=== PATIENT | male | born 1950 | race Caucasian/White ===

== ENCOUNTER 2022-12-30 09:19 | Outpatient (REF) | payer OTHER, MEDICARE, SELFPAY ==
--- NOTE | ~2022-12-30 | XR_ITS ---
EXAMINATION: XR CERVICAL SPINE CLINICAL INFORMATION: Fall, trauma, pain COMPARISON: Facial bones 12/30/2022 TECHNIQUE: 3 views of the cervical spine were obtained. FINDINGS: There is no cervical vertebral compression, spondylolisthesis, or prevertebral soft tissue swelling. Cervical lordosis within normal. The odontoid appears intact. There are multilevel degenerative disc changes C3-T1 with disc narrowing and variable endplate sclerosis and vertebral spurring. Multilevel facet degeneration also present. There is some nonspecific demineralization posterior superior aspect C1 posterior spinous process. No periostitis. Otherwise, no bony destructive process. XR/XR cervical spine 3V IMPRESSION: 1. No vertebral compression, spondylolisthesis, or prevertebral soft tissue swelling. 2. Multilevel degenerative disc and degenerative facet changes. 3. Nonspecific demineralization posterior superior aspect C1 posterior spinous process.
--- NOTE | ~2022-12-30 | XR_ITS ---
EXAMINATION: XR FACIAL BONES CLINICAL INFORMATION: Fall COMPARISON: None TECHNIQUE: 3 views of the facial bones were obtained. FINDINGS: There are no acute fractures or dislocations. There may be old trauma to the inferior nasal bone. There is question of a lucency measuring 1 cm seen projecting superior to the left frontal sinus. This is appreciated on the polanco view only.. There are degenerative changes of the spine. Soft tissues are normal. XR/XR facial bones min 3V IMPRESSION: No acute findings.
== END 2022-12-30 09:20 | disposition home or self-care (01) ==
LOC: HO.HMGCX 09:19
PROVIDERS: Visit Provider Nurse Practitioner Family
DX: T20.00XA Burn of unspecified degree of head, face, and neck, unspecified site, initial encounter (principal); M54.2 Cervicalgia; W19.XXXD Unspecified fall, subsequent encounter
CPT/HCPCS: 70150; 72040

== ENCOUNTER 2025-09-08 08:28 | Outpatient (AMB) | payer OTHER, SELFPAY ==
--- NOTE | 2025-09-08 08:31 | A.OFFVIS_ITS ---
Vital Signs 09/08/25 08:34 Height 5 ft 8 in Weight 154 lb 8 oz BMI 23.5 BP 148/84 H Blood Pressure Location Rt brachial Position Sitting Pulse 77 Pulse Source Pulse Oximeter Pulse Oximetry (%) 99 Oxygen Delivery Method Room Air Intake Visit Reasons: 05/11LVM+Let ENP - Tremors, Dizziness, Falls Intake Note: Tremor, Dizziness and Falls Deaf/Hard Of Hearing Specialist Required: No Accompanied by: Sister in law Allergies No Known Allergies Allergy (Verified 09/08/25 08:31) Medication List - Last Reconciled 09/08/25 by Hien Almonte MD ascorbic acid (vitamin C) 100 mg PO DAILY atorvastatin 20 mg PO DAILY carbidopa-levodopa 25-100 mg 1 tab PO BID cholecalciferol (vitamin D3) 50 mcg PO DAILY diclofenac sodium 1% 2 grams topical QID HPI Comments Details: 75y/o Right Handed male comes here for evaluation of tremors, fatigue, dizziness, poor balance. He started noticing tremors in his left hand about 1 year ago . the tremors are intermittent and at rest. No drooling No change in voice. He denies any difficulty with his hand writing No trouble with utensils, No difficulty with shower but is slow in dressing .No problems with turning in bed He has sleep issues.He is not sure if he snores, nocturia 3 times , has excessive daytime fatigue. His sleep worse since radiation for prostrate cancer 1 year ago. 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 No h/o head injury He had 1 fall- last week- he had a few drinks and became dizzy He drinks a bottle of wine sometimes and 3 glasses of wine.He feels lightheaded when he has a few drinks He lives with his partner . 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 Constipation Actinic keratoses Need for hepatitis C screening test Vitamin D deficiency Cervicalgia Other fatigue Recurrent falls Tremors of nervous system Dizziness Tubular adenoma of colon Prostate cancer Normocytic anemia Pre-diabetes Hyperlipidemia, mixed Surgical History S/P colonoscopic polypectomy Physical Exam Vital Signs: Last Vital Signs Pulse 77 09/08/25 08:34 BP 148/84 H 09/08/25 08:34 Pulse Ox 99 09/08/25 08:34 Oxygen Delivery Method Room Air 09/08/25 08:34 BMI result Body Mass Index 23.5 Const General: cooperative, healthy appearing and comfortable Nutritional Appearance: average body habitus Orientation/consciousness: patient oriented x3 Eyes Pupils: Equal, round and reactive pupils present Neuro Other: antecollis Restricted lateral movement Decreased facial expression and blink EOM- severely decreased upgaze and down gaze and saccadic horizontal movements. Left UE high amplitude rest tremors FFM and foot taps decreased vernon L>R Mild cog wheel rigidity L>R Gait- no arm swing on left , stooped slow General: patient oriented x3, moves all extremities and no focal motor deficits Cranial nerves: Yes Facial sensation intact/muscles of mastication intact, Yes Equal, round and reactive pupils present, Yes Bilaterally intact EOM present, Yes Nystagmus not present, Yes Normal facial strength present, Yes Midline tongue present and Yes Ability to bilaterally elevate shoulders present Cognition (Neuro): normal cognition Motor exam (neuro): 5/5 motor strength present throughout and Normal motor muscle tone present throughout Deep tendon reflexes (DTR's): Right triceps reflex intensity grade: 1+, Left triceps reflex intensity grade: 1+, Rt Biceps (C5, C6): 1+, Left biceps reflex intensity grade: 1+, Right brachioradialis reflex intensity grade: 1+, Left brachioradialis reflex intensity grade: 1+, Right patellar reflex intensity grade: 2+ and Left patellar reflex intensity grade: 2+ Coordination: [id number] test normal Assessment & Plan Assessment & Plan (1) Parkinsons disease: Comment: ? PSP Code(s): G20 - Parkinson's disease Category: Medical (2) Hypersomnia: Code(s): G47.10 - Hypersomnia, unspecified Category: Medical (3) Snoring: Code(s): R06.83 - Snoring Category: Medical Plan MRI brain from [place] for review I will trial him on carbidopa/levodopa 25/100 bid - interaction with protien discussed PT for gait and balance Home sleep test to r/o sleep apnea STOP ALCOHOL Orders: Orders PWR Program Eval and Treat Today G20 - Parkinson's disease Medications: New carbidopa-levodopa 25-100 mg 1 tab PO BID 60 tabs 6RF Coding Level of Care Code New Pt Level 4 (06340) Complex EM visit Add On G2211 Diagnoses Parkinsons disease G20 Hypersomnia G47.10 Snoring R06.83
[2025-09-08 08:34] VITALS: BP 148/84; PULSE 77; O2SAT 99; BMI 23.5
--- OUTSIDE RECORDS SUMMARY | 2025-09-08 08:51 | XMS_ITS | Encounter Summary ---
Author Organization [facility] Address [address] [place] [address] Care Team Providers Care Installation Drafter Name Role Phone Andre Rush MD Primary Care Pr ovider Encounter Details Date Type Department Care Team (Late Contact Info) Description 10/25/2024 Lab Requisition [facility] - Main Lab [address] [facility] [place] [phone] Clara Miramontes, PA [address] [facility] [address] [place] [address] Malignant [facility] ([facility] V24, CMS/HCC V28) Social History Tobacco Use Types Packs/Day Years Used Date Smoking Tobacco: Never Smokeless Tobacco: Never Alcohol Use Standard Drinks/Week Comments Yes 3 (1 standard drink = 0.6 oz pur e alcohol) Sex and Gender Information Value Date Recorded Sex Assigned at Not on file Legal Sex Male 9:06 PM EST Gender Identity Not on file Sexual Orientation Not on file documented as of this encounter Plan of Treatment Upcoming Encounters Date Type Department Care Team (Late Contact Info) Description 09/09/2025 10:00 AM EDT Office Visit Neurosurgery [facility] [address] [facility] [address] [place] [phone] Lesli Barreto MD [address] [place] [address] 09/13/2025 9:30 AM EDT Office Visit Adult Medicine [facility] [address] [place], [place] [phone] Cecilia Staton PA [address] [place] [address] 11/14/2025 9:00 AM EST Appointment [facility] Endoscopy [address] [place] [phone] Jeremias Cantrell DO [address] [address] documented as of this encounter Procedures Procedure Name Priority Date/Time Associated Diagnosis Comments PROSTATE SPECIFIC ANTIGEN DIAGNOSTIC Routine 10/25/2024 9:12 AM EST Malignant neoplasm of prostate (CMS/HCC) documented in this encounter Results * Prostate specific antigen diagnostic (10/25/2024 9:12 AM EST) PSA 0.07 0.00 - 4.00 ng/mL LAB CHEMISTRY METHOD 10/25/2024 12:53 PM EST [facility] Blood Venous blood specimen / Unknown 10/25/2024 9:12 AM EST 10/25/2024 12:08 PM EST Narrative [facility] - 10/25/2024 12:53 PM EST The Siemens Advia Centaur Chemiluminescent Immunoassay is used. Results obtained with different assay methods or kits cannot be used interchangeably. Results cannot be interpreted as absolute evidence of the presence or absence of malignant disease. us Clara TOBAR LAB BLOOD ORDERABLES Final Resul t [facility] [address] [place] [address], [place] [phone] documented in this encounter Visit Diagnoses Diagnosis Malignant neoplasm of prostate (CMS/HCC V24, CMS/HCC V28) Malignant neoplasm of prostate documented in this encounter Care Teams Installation Drafter Relationship Specialty Start Date End Date Ogundipe, Oyinkansola Oyenike, MD [address] [place] [phone] PCP - General Internal Medicine 11/08/24 documented as of this encounter
--- OUTSIDE RECORDS SUMMARY | 2025-09-08 08:51 | XMS_ITS | Clinical Summary ---
Author Organization [facility] Address [address] [place] [address] Phone Care Team Providers Care Hand Stoner Name Role Phone Andre Rush MD Primary Care Pr ovider Allergies No known active allergies Medications coenzyme Q-10 (Co Q-10) 100 mg capsule Take 1 capsule (100 mg total) by mouth 1 (one) time each day. Active Vitamin C tablet Take 1 tablet (100 mg total) by mouth 1 (one) time each day. Active cholecalciferol (VITAMIN D-3) 50 mcg (2,000 unit) tabletIndications: Vitamin D insufficiency Take 1 tablet (2,000 Units total) by mouth 1 (one) time each day. 90 tablet 3 5 05/16/20 26 Active atorvastatin (LIPITOR) 20 mg tablet TAKE 1 TABLET BY MOUTH DAILY 90 tablet 1 5 Active diclofenac (VOLTAREN) 1 % topical gel Apply 2 g topically 2 (two) times a day. 100 g 1 5 Active Active Problems Problem Noted Date Diagnosed Date Dizziness 06/24/2025 Assessment & Plan (06/24/2025 8:45 AM EDT): As above. His dizziness could also be related to his severe DJD of the neck/cervical stenosis. He will follow-up with neurology at [facility] in August Vitamin D insufficiency 05/16/2025 Assessment & Plan (06/24/2025 8:45 AM EDT): Continue vitamin D daily Hyperlipidemia, mixed 05/09/2025 Assessment & Plan (06/24/2025 8:45 AM EDT): Well-controlled. Continue atorvastatin 20 mg Assessment & Plan (05/09/2025 2:38 PM EDT): Continue atorvastatin 20 mg. Will update fasting labs Orders: Comprehensive metabolic panel; Future Lipid panel with reflex to direct LDL; Future Prediabetes 05/09/2025 Assessment & Plan (06/24/2025 8:45 AM EDT): Stable. continue lifestyle management. Assessment & Plan (05/09/2025 2:38 PM EDT): Lifestyle counseling provided. Will update A1c Orders: Hemoglobin A1c; Future Tubular adenoma of colon 05/09/2025 Assessment & Plan (06/24/2025 8:45 AM EDT): Has colonoscopy scheduled for Dec Orders: Ambulatory referral to Gastroenterology; Future Assessment & Plan (05/09/2025 2:38 PM EDT): Due for colonoscopy in October and is referred to GI Orders: Ambulatory referral to Gastroenterology; Future Vitamin D 25 hydroxy; Future Cervicalgia 05/09/2025 Assessment & Plan (05/09/2025 2:38 PM EDT): Will trial Flexeril nightly. Counseled on possible side effects of the medication. X-ray of the C-spine is ordered Orders: cyclobenzaprine (FLEXERIL) 5 mg tablet; Take 1 tablet (5 mg total) by mouth at bedtime as needed for muscle spasms. Tremors of nervous system 05/09/2025 Assessment & Plan (06/24/2025 8:45 AM EDT): He will follow-up with neurology at [facility] in August Assessment & Plan (05/09/2025 2:38 PM EDT): Referred to neurology. MRI of the brain ordered Orders: MR Brain wo and w Contrast; Future Ambulatory referral to Neurology; Future Osteoarthritis of cervical spine with myelopathy 05/09/2025 Assessment & Plan (06/24/2025 8:45 AM EDT): He will start physical therapy next week and follow-up with neurosurgery thereafter. Neuroforaminal stenosis of cervical spine 2024 Assessment & Plan (06/24/2025 8:45 AM EDT): He will start physical therapy next week and follow-up with neurosurgery thereafter. Prostate cancer (CMS/HCC V24, CMS/HCC V28) 10/26 Assessment & Plan (06/24/2025 8:45 AM EDT): He will continue urology follow-up. See HPI Assessment & Plan (05/09/2025 2:38 PM EDT): He will continue urology follow-up with Dr. Andrews. Received his last Eligard injection last week per patient/family Orders: Vitamin D 25 hydroxy; Future Constipation 05/30/2023 Melanocytic nevus 05/30/2023 Assessment & Plan (06/24/2025 8:45 AM EDT): Referred to dermatology for complete skin exam Orders: Ambulatory referral to Dermatology; Future Solar lentigo 05/30/2023 Actinic keratoses 05/30/2023 Assessment & Plan (06/24/2025 8:45 AM EDT): Referred to dermatology Orders: Ambulatory referral to Dermatology; Future Resolved Problems Problem Noted Date Diagnosed Date Resolved Date Normocytic anemia 05/09/2025 06/24/2025 Assessment & Plan (05/09/2025 2:38 PM EDT): Likely related to his history of prostate cancer and colon polyps which were removed. Will update labs given his continued fatigue. Orders: CBC and differential; Future Ferritin; Future Iron and TIBC; Future Elevated PSA 05/30/2023 05/09/2025 Encounters Date Type Department Care Team Description 08/18/[address] [phone] Andre Rush MD 08/15/[address] [phone] Andre Rush MD 08/09/2025 8:30 AM EDT Office Visit [address] [phone] Cecilia Staton PA Hyperlipidemia, mixed (Primary Dx); Prediabetes; History of prostate cancer; Vitamin D insufficiency; Neuroforaminal stenosis of cervical spine; History of essential hypertension; Tremors of nervous system; Referral of patient 06/24/2025 8:00 AM EDT Office Visit [address] [phone] Andre Rush MD Annual physical exam (Primary Dx); Prediabetes; Prostate cancer (CMS/HCC V24, CMS/HCC V28); Hyperlipidemia, mixed; Tubular adenoma of colon; Alcohol use disorder in remission; Dizziness; Melanocytic nevus, unspecified location; Actinic keratoses; Neuroforaminal stenosis of cervical spine; Osteoarthritis of cervical spine with myelopathy; Tremors of nervous system; Vitamin D insufficiency 06/13/2025 Telephone Neurosurgery [facility] [address] [place] [address] Christina Cruz PA 06/10/2025 8:15 AM EDT - 06/10/2025 11:59 PM EDT Hospital Encounter Radiology Department - [address] [phone] Cervical spondylosis Discharge Disposition: Home or Self Care from Last 3 Months Immunizations Immunization Administration Dates Next Due Pneumococcal conjugate 20 va lent (Prevnar 20, PCV 20) 2mo and older 05/30/2023 Surgical History Surgery Date Site/Laterality Comments CARPAL TUNNEL RELEASE 2012 PROCEDURE: HISTORICAL CARPAL TUNNEL REL COLONOSCOPY Medical History Medical History Date Comments Hyperlipidemia Prostate CA (CMS/HCC V24, CMS/HCC V28) Solar lentigo Actinic keratoses Melanocytic nevus Elevated PSA 05/30/2023 High cholesterol Normocytic anemia 05/09/2025 Family History Medical History Relation Name Comments Breast cancer Neg Hx Colon cancer Neg Hx Prostate cancer Neg Hx Relation Name Status Comments Father Mother Social History Tobacco Use Types Packs/Day Years Used Date Smoking Tobacco: Never Smokeless Tobacco: Never Tobacco Cessation:Counseling Given: Not Answered Alcohol Use Standard Drinks/Week Comments Yes 4 (1 standard drink = 0.6 oz pur e alcohol) Housing Instability Answer Date Recorde d Are you worried that in the next 2 months you may not have stable housing? No 06/24/2025 Food Access & Nutrition Answer Date Rec orded Do you have access to a vari ety of food including fruits and vegetables? Yes 06/24/2025 Access to Healthcare Answer Date Record ed Within the last 3 months, delilah giraldo many times did you visit the emergency department for your medical care? 0 06/24/2025 Health Literacy Answer Date Recorded How often do you need to hav e someone help you when you read instructions, pamphlets, or other written material from your doctor or pharmacy? Never 06/24/2025 Caregiver: How often do you need to have someone help you when you read instructions, pamphlets, or other written material from your doctor or pharmacy? Not on file 06/24/2025 Financial Risk Answer Date Recorded How hard is it for you to pa y for the very basics like food, housing, medical care, and air conditioning / heating? Not very hard 06/24/2025 Transportation Answer Date Recorded Has the lack of transportati on kept you from meetings, work, or from getting things needed for daily living? No Has the lack of transportati on kept you from medical appointments or from getting medications? No 06/24/2025 Social Isolation Answer Date Recorded How often do you feel lonely or isolated from th ose around you? Never 06/24/2025 Food Risk Answer Date Recorded Within the past 12 months we worried whether our food would run out before we got money to buy more. Never true 06/24/2025 Within the past 12 months th e food we bought just didn't last and we didn't have money to get more. Never true 06/24/2025 Dependent Care Answer Date Recorded Do you need help finding or paying for care for your loved ones. For example, early childhood worker or elderly care for an older adult? No 06/24/2025 Education Answer Date Recorded Do you think completing more education or training, like finishing a GED, going to college, or learning a trade, would be helpful for you? No 06/24/2025 Employment and Income Answer Date Recor ded During the last four weeks, have you been actively looking for work? No 06/24/2025 Living Situation Answer Date Recorded What is your living situation? Unrecognized valu e 06/24/2025 Interpersonal Safety Answer Date Record ed Physical Abuse Unrecognized value 11/08/2024 Verbal Abuse Unrecognized value 11/08/2024 Sex and Gender Information Value Date Recorded Sex Assigned at Not on file Legal Sex Male 9:06 PM EST Gender Identity Not on file Sexual Orientation Not on file Obstetrics History Last Filed Vital Signs Vital Sign Reading Time Taken Comments Blood Pressure 144/78 08/09/2025 8:29 AM EDT Pulse 76 08/09/2025 8:20 AM EDT Temperature 35.9 C (96.6 F) 08/09/2025 8:20 AM EDT Respiratory Rate 16 08/09/2025 8:20 AM EDT Oxygen Saturation 96% 08/09/2025 8:20 AM EDT Inhaled Oxygen Concentration - - Weight 70 kg (154 lb 4.8 oz) 08/09/2025 8:20 AM EDT Height 172.7 cm (5' 8 ) 08/09/2025 8:20 AM EDT Body Mass Index 23.46 08/09/2025 8:20 AM EDT Plan of Treatment Upcoming Encounters Date Type Department Care Team (Late st Contact Info) Description 09/09/2025 10:00 AM EDT Office Visit Neurosurgery [facility] [address] [facility] [address] [place] [phone] Lesli Barreto MD [address] [place] [address] 09/13/2025 9:30 AM EDT Office Visit Adult Medicine [facility] [address] [place] [address] Cecilia Staton PA [address] [place] [address] 11/14/2025 9:00 AM EST Appointment [facility] [address] [place] [phone] Klaudia Cantrell, [address] [address] Health Maintenance Due Date Last Done Comments Hepatitis A Vaccines (1 of 2 - Risk 2-dose series) 1969 Zoster Vaccines (1 of 2) 1969 Medicare Annual Wellness Visit 12/12/2023 RSV Immunization Adult Patients (1 - 1-dose 75+ series) 2025 Colorectal Cancer Screening: Colonoscopy 11/08/2025 11/08/2024 Falls Risk Assessment 11/08/2025 11/08/2024 Influenza Vaccine (#1) 2026 Postp oned from 07/18/2025 (Patient Refused) Social Influencers of Health Screening 06/24/2026 06/24/2025 Cholesterol Screening (Lipid Panel) 05/12/2030 05/12/2025, 11/03/2024, 06/23/2024, Additional history exists DTaP,Tdap,and Td Vaccines (2 - Td or Tdap) 12/30/2032 12/30/2022 Pneumococcal Vaccine: 50+ Years Completed 05/30/2023 Hepatitis C Screening Completed 05/12/2025 Depression Screening Completed 06/24/2025 COVID-19 Vaccine Discontinued HIB Vaccines Aged Out No longer eligi ble based on patient's age to complete this topic HPV Vaccines Aged Out No longer eligi ble based on patient's age to complete this topic Hepatitis B Vaccines Aged Out No long er eligible based on patient's age to complete this topic IPV Vaccines Aged Out No longer eligi ble based on patient's age to complete this topic MMR Vaccines Aged Out No longer eligi ble based on patient's age to complete this topic Meningococcal ACWY Vaccine Aged Out N o longer eligible based on patient's age to complete this topic Meningococcal B Vaccine Aged Out No l onger eligible based on patient's age to complete this topic RSV Immunization Patients Under 20 months Aged Out No longer eligible based on patient's age to complete this topic Varicella Vaccines Aged Out No longer eligible based on patient's age to complete this topic Procedures Procedure Name Priority Date/Time Associated Diagnosis Comments VITAMIN B12 Routine 06/24/2025 9:25 AM EDT Alcohol use disorder in remission VITAMIN B6 Routine 06/24/2025 9:25 AM EDT Alcohol use disorder in remission VITAMIN B1 Routine 06/24/2025 9:25 AM EDT Alcohol use disorder in remission FOLATE Routine 06/24/2025 9:25 AM EDT Alcohol use disorder in remission ZINC Routine 06/24/2025 9:25 AM EDT Alcohol use disorder in remission MR CERVICAL SPINE WO CONTRAST Routine 06/10/2025 9:28 AM EDT Cervical spondylosis HEPATITIS C ANTIBODY Routine 05/12/2025 8:47 AM EDT Need for hepatitis C screening test LIPID PANEL WITH REFLEX TO DIRECT LDL Routine 05/12/2025 8:47 AM EDT Hyperlipidemia, mixed COLONOSCOPY Routine 11/08/2024 10:45 AM EST Hx of colonic polyps from Last 3 Months or Most Recently Relevant to Health Maintenance Results * Zinc (06/24/2025 9:25 AM EDT) Zinc 68 60 - 130 ug/dL 06/27/2025 1:08 PM EDT [facility] Comment: Elevated results may be due to sample collected in a non-certified trace element-free tube. This test was developed and the performance characteristics determined by [facility]. It has not been cleared or approved by the FDA. The laboratory is regulated under CLIA as qualified to perform high-complexity testing. This test is used for patient testing purposes. It should not be regarded as investigational or for research. Test performed at [facility], [address] [place] [address] Corinna Salamanca MD, PhD - Verifying Specialist Blood Venous blood specimen / Unknown Venipuncture / Unknown 06/24/2025 9:25 AM EDT 06/24/2025 9:25 AM EDT us Andre Rush MD LAB BLOOD ORDERA BLES Final Result Performing Organization Address City/[facility]/ZIP Co de Phone Number [facility] [address] [place] [address] * Vitamin B1 (06/24/2025 9:25 AM EDT) Pathologist [facility] Vitamin B1 Whole Blood 52 38 - 122 ug/L 06/29/2025 12:21 PM EDT [facility] Comment: This test was developed and the performance characteristics determined by [facility]. It has not been cleared or approved by the FDA. The laboratory is regulated under CLIA as qualified to perform high-complexity testing. This test is used for patient testing purposes. It should not be regarded as investigational or for research. Test performed at [facility], [address] [place] [address] Corinna Salamanca MD, PhD - Verifying Specialist Blood Venous blood specimen / Unknown Venipuncture / Unknown 06/24/2025 9:25 AM EDT 06/24/2025 9:25 AM EDT us Andre Rush MD LAB BLOOD ORDERA BLES Final Result Performing Organization Address City/[facility]/ZIP Co de Phone Number [facility] [address] [place] [address] * Vitamin B6 (06/24/2025 9:25 AM EDT) Pathologist [facility] Vitamin B6 (Pyridoxine) Level 12 5 - 50 ug/L 06/28/2025 9:24 AM EDT [facility] Comment: This test was developed and the performance characteristics determined by [facility]. It has not been cleared or approved by the FDA. The laboratory is regulated under CLIA as qualified to perform high-complexity testing. This test is used for patient testing purposes. It should not be regarded as investigational or for research. Test performed at [facility], [address] [place] [address] Corinna Salamanca MD, PhD - Verifying Specialist Blood Venous blood specimen / Unknown Venipuncture / Unknown 06/24/2025 9:25 AM EDT 06/24/2025 9:25 AM EDT Andre Rush MD LAB BLOOD ORDERA BLES Final Result Performing Organization Address City/[facility]/ZIP Co de Phone Number [facility] [address] [place] [address] * (ABNORMAL) Folate (06/24/2025 9:25 AM EDT) Folate 18.8(H) 2.8 - 17.0 ng/ml LAB CHEMISTRY METHOD 06/24/2025 2:10 PM EDT [facility] Blood Venous blood specimen / Unknown Venipuncture / Unknown 06/24/2025 9:25 AM EDT 06/24/2025 9:25 AM EDT us Andre Rush MD LAB BLOOD ORDERA BLES Final Result [facility] [address] [place] [address], * Vitamin B12 (06/24/2025 9:25 AM EDT) Vitamin B-12 510 250 - 900 pcg/mL LAB CHEMISTRY METHOD 06/24/2025 2:10 PM EDT [facility] Blood Venous blood specimen / Unknown Venipuncture / Unknown 06/24/2025 9:25 AM EDT 06/24/2025 9:25 AM EDT Andre Rush MD LAB BLOOD ORDERA BLES Final Result [facility] [address] [place] [address], * MR Cervical Spine wo Contrast (06/10/2025 9:28 AM EDT) Anatomical Region Laterality Modality C-spine, Spine Magnetic Resonan ce 06/10/2025 12:3 3 PM EDT Impressions 06/10/2025 5:51 PM EDT Moderately severe degenerative changes in the cervical spine. Severe bilateral neural foraminal narrowing at C3-4 through C5-6. No high-grade spinal canal stenosis. POS - [id number] -------- FINAL REPORT -------- Dictated By: Mindy Wilder Dictated Date: 06/10/2025 12:33 ET Assigned Physician: Mindy Wilder Reviewed and Electronically Signed By: Mindy Wilder Signed Date: 06/10/2025 17:51 ET Workstation ID: [id number] Transcribed By: Self Edit Transcribed Date: 06/10/2025 13:20 ET Narrative 06/10/2025 5:51 PM EDT EXAM: Cervical spine MRI HISTORY: Neck pain. Decreased cervical range of motion. Weakness in leg. Multiple falls. Dizziness. COMPARISON: None CORRELATION: Cervical spine radiography 05/09/2025 TECHNIQUE: Exam performed on a 1.5 [employer] high-field MRI scanner. Multiplanar imaging performed without contrast. FINDINGS: No cord signal abnormality detected. No significant narrowing at the craniocervical junction. Vertebral body heights are maintained. Fatty degenerative endplate signal changes at C3-4 and C4-5. Bone marrow edema surrounds endplate Schmorl's nodes at T1-2, likely reactive edema. Diffuse moderate to severe loss of disc height below C3. C2-3: No significant disc bulging or evidence of a disc protrusion or extrusion. Moderate facet arthropathy on the right. Uncovertebral spurring on the left. Mild right neural foraminal narrowing. No significant left neural foraminal narrowing or spinal canal stenosis. C3-4: Generalized disc osteophyte complex without compression on the cord. Mild bilateral facet arthropathy. Bilateral uncovertebral spurring. Mild bilateral facet arthropathy. Severe bilateral neural foraminal narrowing. Mild narrowing of the spinal canal. C4-5: Generalized disc osteophyte complex without compression on the cord. Mild bilateral facet arthropathy. Bilateral uncovertebral spurring. Severe bilateral neural foraminal narrowing. Mild narrowing of the spinal canal. C5-6: Diffuse disc bulging without compression on the cord. Mild bilateral facet arthropathy. Bilateral uncovertebral spurring. Severe right and moderately severe left neural foraminal narrowing. Mild narrowing of the spinal canal. C6-7: No significant disc bulging or evidence of a disc protrusion or extrusion. Minimal posterior endplate spurring. Uncovertebral spurring on the right. Mild right neural foraminal narrowing. No significant left neural foraminal narrowing. No significant spinal canal stenosis. C7-T1: Disc bulging eccentric to the right. Uncovertebral spurring on the right. Mild right neural foraminal narrowing. No significant left neural foraminal narrowing or spinal canal stenosis. On the sagittal survey views of the thoracic and lumbar spine, conus medullaris terminates at L2 which is within normal limits. Multilevel endplate Schmorl's nodes. Moderate degenerative changes in the lumbar spine and milder in the thoracic spine. No high-grade spinal canal stenosis. Grade 1 anterolisthesis of L4 on L5 secondary to facet arthropathy. Multiple small urinary bladder diverticula. Procedure Note Mindy Wilder MD - 06/10/2025 EXAM: Cervical spine MRI HISTORY: Neck pain. Decreased cervical range of motion. Weakness in leg.Multiple falls. Dizziness. COMPARISON: None CORRELATION: Cervical spine radiography 05/09/2025 TECHNIQUE: Exam performed on a 1.5 [employer] high-field MRI scanner.Multiplanar imaging performed without contrast. FINDINGS: No cord signal abnormality detected. No significant narrowing at thecraniocervical junction. Vertebral body heights are maintained. Fatty degenerative endplate signalchanges at C3-4 and C4-5. Bone marrow edema surrounds endplate Schmorl'snodes at T1-2, likely reactive edema. Diffuse moderate to severe loss ofdisc height below C3. C2-3: No significant disc bulging or evidence of a disc protrusion orextrusion. Moderate facet arthropathy on the right. Uncovertebral spurringon the left. Mild right neural foraminal narrowing. No significant leftneural foraminal narrowing or spinal canal stenosis. C3-4: Generalized disc osteophyte complex without compression on thecord. Mild bilateral facet arthropathy. Bilateral uncovertebral spurring.Mild bilateral facet arthropathy. Severe bilateral neural foraminalnarrowing. Mild narrowing of the spinal canal. C4-5: Generalized disc osteophyte complex without compression on thecord. Mild bilateral facet arthropathy. Bilateral uncovertebral spurring.Severe bilateral neural foraminal narrowing. Mild narrowing of the spinalcanal. C5-6: Diffuse disc bulging without compression on the cord. Mildbilateral facet arthropathy. Bilateral uncovertebral spurring. Severeright and moderately severe left neural foraminal narrowing. Mildnarrowing of the spinal canal. C6-7: No significant disc bulging or evidence of a disc protrusion orextrusion. Minimal posterior endplate spurring. Uncovertebral spurring onthe right. Mild right neural foraminal narrowing. No significant leftneural foraminal narrowing. No significant spinal canal stenosis. C7-T1: Disc bulging eccentric to the right. Uncovertebral spurring on theright. Mild right neural foraminal narrowing. No significant left neuralforaminal narrowing or spinal canal stenosis. On the sagittal survey views of the thoracic and lumbar spine, conusmedullaris terminates at L2 which is within normal limits. Multilevelendplate Schmorl's nodes. Moderate degenerative changes in the lumbarspine and milder in the thoracic spine. No high-grade spinal canalstenosis. Grade 1 anterolisthesis of L4 on L5 secondary to facetarthropathy. Multiple small urinary bladder diverticula. IMPRESSION: Moderately severe degenerative changes in the cervical spine. Severebilateral neural foraminal narrowing at C3-4 through C5-6. No high-gradespinal canal stenosis. POS - [id number] -------- FINAL REPORT -------- Dictated By: Mindy Wilder Dictated Date: 06/10/2025 12:33 ET Assigned Physician: Mindy Wilder Reviewed and Electronically Signed By: Mindy Wilder Signed Date: 06/10/2025 17:51 ET Workstation ID: [id number] Transcribed By: Self Edit Transcribed Date: 06/10/2025 13:20 ET us Christina TOBAR IMG MRI PROCEDURES Final R esult * Hepatitis C antibody (05/12/2025 8:47 AM EDT) [facility] Hepatitis C Antibody Negative Negative LAB CHEMISTRY METHOD 05/12/2025 4:21 PM EDT [facility] Blood Venous blood specimen / Unknown Venipuncture / Unknown 05/12/2025 8:47 AM EDT 05/12/2025 8:47 AM EDT us Andre Rush MD LAB BLOOD ORDERA BLES Final Result [facility] [address] [place] [address], [place] [phone] * Lipid panel with reflex to direct LDL (05/12/2025 8:47 AM EDT) [facility] Cholesterol 186 0 - 200 mg/dL LAB CHEMISTRY METHOD 05/12/2025 2:15 PM EDT [facility] Triglycerides 74 0 - 150 mg/dL LAB CHEMISTRY METHOD 05/12/2025 2:15 PM EDT [facility] HDL 86 >=40 mg/dL LAB CHEMISTRY METHOD 05/12/2025 2:15 PM EDT [facility] LDL Calculated 85 0 - 100 mg/dL LAB CHEMISTRY METHOD 05/12/2025 2:15 PM EDT [facility] VLDL Cholesterol Óscar 14.8 mg/dL LAB CHEMISTRY METHOD 05/12/2025 2:15 PM EDT [facility] Non HDL Chol. (LDL+VLDL) 100 <145 mg/dL LAB CHEMISTRY METHOD 05/12/2025 2:15 PM EDT [facility] Chol/HDL Ratio 2.2 0.0 - 4.4 LAB CHEMISTRY METHOD 05/12/2025 2:15 PM EDT [facility] Blood Venous blood specimen / Unknown Venipuncture / Unknown 05/12/2025 8:47 AM EDT 05/12/2025 8:47 AM EDT Andre Rush MD LAB BLOOD ORDERA BLES Final Result [facility] ([facility]) [facility] [address] [place] [address], [place] [phone] * COLONOSCOPY Anesthesia - MAC; [facility] ENDOSCOPY (11/08/2024 10:45 AM EST) Anatomical Region Laterality Modality Endoscopy 11/08/2024 9:07 AM EST Impressions 11/08/2024 10:45 AM EST - Hemorrhoids found on perianal exam. - Four 5 to 10 mm polyps in the ascending colon and in the cecum, removed with a cold snare. Resected and retrieved. - One 3 mm polyp in the descending colon, removed with a jumbo cold forceps. Resected and retrieved. - The examination was otherwise normal on direct and retroflexion views. Recommendation: - - Discharge patient to home. - High fiber diet. - Continue present medications. - Await pathology results. - Repeat colonoscopy for surveillance based on pathology results. Narrative 11/08/2024 10:45 AM EST [facility] GI Patient Name: Boom Klein Procedure Date: 11/08/2024 9:07 AM Date of : 1950 Age: 74 Gender: Male Note Status: Finalized Attending MD: Klaudia Cantrell DO, [id number] Procedure Date No Time: 11/08/2024 Procedure: Colonoscopy Indications: Surveillance: Piecemeal removal of large sessile adenoma last colonoscopy (< 3 yrs) Providers: Klaudia Cantrell DO Referring MD: Andre Rush MD Medicines: Monitored Anesthesia Care Complications: No immediate complications. Estimated blood loss: Minimal. Estimated Blood Loss: Estimated blood loss was minimal. Procedure: Pre-Anesthesia Assessment: - - Prior to the procedure, a History and Physical was performed, and patient medications and allergies were reviewed. The patient is competent. The risks and benefits of the procedure and the sedation options and risks were discussed with the patient. All questions were answered and informed consent was obtained. Patient identification and proposed procedure were verified by the physician, the nurse, the anesthesiologist, the natural gas shothole driller and the help desk technician in the pre-procedure area in the endoscopy suite. Mental Status Examination: alert and oriented. Airway Examination: normal oropharyngeal airway and neck mobility. Respiratory Examination: clear to auscultation. CV Examination: normal. Prophylactic Antibiotics: The patient does not require prophylactic antibiotics. Prior Anticoagulants: The patient has taken no anticoagulant or antiplatelet agents. ASA Grade Assessment: II - A patient with severe systemic disease. After reviewing the risks and benefits, the patient was deemed in satisfactory condition to undergo the procedure. The anesthesia plan was to use monitored anesthesia care (MAC). Immediately prior to administration of medications, the patient was re-assessed for adequacy to receive sedatives. The heart rate, respiratory rate, oxygen saturations, blood pressure, adequacy of pulmonary ventilation, and response to care were monitored throughout the procedure. The physical status of the patient was re-assessed after the procedure. After I obtained informed consent, the scope was passed under direct vision. Throughout the procedure, the patient's blood pressure, pulse, and oxygen saturations were monitored continuously. The Colonoscope was introduced through the anus and advanced to the cecum, identified by appendiceal orifice and ileocecal valve. The colonoscopy was performed without difficulty. The patient tolerated the procedure well. The quality of the bowel preparation was good. Findings: Hemorrhoids were found on perianal exam. Four sessile polyps were found in the ascending colon and cecum. The polyps were 5 to 10 mm in size. These polyps were removed with a cold snare. Resection and retrieval were complete. Estimated blood loss was minimal. A 3 mm polyp was found in the descending colon. The polyp was sessile. The polyp was removed with a jumbo cold forceps. Resection and retrieval were complete. Estimated blood loss was minimal. The exam was otherwise without abnormality on direct and retroflexion views. Procedure Code(s): --- Professional --- 70619, Colonoscopy, flexible; with removal of tumor(s), polyp(s), or other lesion(s) by snare technique 23315, 59, Colonoscopy, flexible; with biopsy, single or multiple Diagnosis Code(s): --- Professional --- D12.4, Benign neoplasm of descending colon D12.0, Benign neoplasm of cecum D12.2, Benign neoplasm of ascending colon K64.9, Unspecified hemorrhoids Z86.010, Personal history of colonic polyps CPT copyright 2020 [employer]. All rights reserved. The codes documented in this report are preliminary and upon scrap burner review may be revised to meet current compliance requirements. KLAUDIA Cantrell DO 11/08/2024 10:44:57 AM This report has been signed electronically.Klaudia Cantrell DO Number of Addenda: 0 Note Initiated On: 11/08/2024 9:07 AM Scope Withdrawal Time: 0 hours 12 minutes 3 seconds Scope In: 10:26:44 AM Scope Out: 10:43:19 AM Endoscopy Department at [facility] - [address] [place] [phone] Procedure Note Klaudia Cantrell DO - 11/08/2024 [facility] GI Patient Name: Boom Klein Procedure Date: 11/08/2024 9:07 AM Date of : 1950 Age: 74 Gender: Male Note Status: Finalized Attending MD: Klaudia Cantrell DO, [id number] Procedure Date No Time: 11/08/2024 Procedure: Colonoscopy Indications: Surveillance: Piecemeal removal of large sessile adenoma last colonoscopy (< 3 yrs) Providers: Klaudia Cantrell DO Referring MD: Andre Rush MD Medicines: Monitored Anesthesia Care Complications: No immediate complications. Estimated blood loss: Minimal. Estimated Blood Loss: Estimated blood loss was minimal. Procedure: Pre-Anesthesia Assessment: - - Prior to the procedure, a History and Physicalwas performed, and patient medications and allergieswere reviewed. The patient is competent. The risks and benefits of the procedure and the sedation optionsand risks were discussed with the patient. Allquestions were answered and informed consent was obtained. Patient identification and proposed procedure were verified by the physician, the nurse, the anesthesiologist, the natural gas shothole driller and thetechnician in the pre-procedure area in the endoscopy suite. Mental Status Examination: alert and oriented.Airway Examination: normal oropharyngeal airway and neck mobility. Respiratory Examination: clear to auscultation. CV Examination: normal. Prophylactic Antibiotics: The patient does not requireprophylactic antibiotics. Prior Anticoagulants: The patient has taken no anticoagulant or antiplatelet agents. ASA Grade Assessment: II - A patient with severesystemic disease. After reviewing the risks and benefits,the patient was deemed in satisfactory condition to undergo the procedure. The anesthesia plan was touse monitored anesthesia care (MAC). Immediately priorto administration of medications, the patient was re-assessed for adequacy to receive sedatives. The heart rate, respiratory rate, oxygen saturations, blood pressure, adequacy of pulmonary ventilation,and response to care were monitored throughout the procedure. The physical status of the patient was re-assessed after the procedure. After I obtained informed consent, the scope was passed under direct vision. Throughout theprocedure, the patient's blood pressure, pulse, and oxygen saturations were monitored continuously. The Colonoscope was introduced through the anus and advanced to the cecum, identified by appendiceal orifice and ileocecal valve. The colonoscopy was performed without difficulty. The patient tolerated the procedure well. The quality of the bowel preparation was good. Findings: Hemorrhoids were found on perianal exam. Four sessile polyps were found in the ascendingcolon and cecum. The polyps were 5 to 10 mm in size.These polyps were removed with a cold snare. Resectionand retrieval were complete. Estimated blood loss was minimal. A 3 mm polyp was found in the descending colon. The polyp was sessile. The polyp was removed with ajumbo cold forceps. Resection and retrieval werecomplete. Estimated blood loss was minimal. The exam was otherwise without abnormality ondirect and retroflexion views. Procedure Code(s): --- Professional --- 68174, Colonoscopy, flexible; with removal of tumor(s), polyp(s), or other lesion(s) by snare technique 44571, 59, Colonoscopy, flexible; with biopsy,single or multiple Diagnosis Code(s): --- Professional --- D12.4, Benign neoplasm of descending colon D12.0, Benign neoplasm of cecum D12.2, Benign neoplasm of ascending colon K64.9, Unspecified hemorrhoids Z86.010, Personal history of colonic polyps CPT copyright 2020 [employer]. All rights reserved. The codes documented in this report are preliminary and upon scrap burner reviewmay be revised to meet current compliance requirements. KLAUDIA Cantrell DO 11/08/2024 10:44:57 AM This report has been signed electronically.Klaudia Cantrell DO Number of Addenda: 0 Note Initiated On: 11/08/2024 9:07 AM Scope Withdrawal Time: 0 hours 12 minutes 3 seconds Scope In: 10:26:44 AM Scope Out: 10:43:19 AM Endoscopy Department at [facility] - [address] [place] [phone] IMPRESSION: - Hemorrhoids found on perianal exam. - Four 5 to 10 mm polyps in the ascending colon andin the cecum, removed with a cold snare. Resected and retrieved. - One 3 mm polyp in the descending colon, removedwith a jumbo cold forceps. Resected and retrieved. - The examination was otherwise normal on directand retroflexion views. Recommendation: - - Discharge patient to home. - High fiber diet. - Continue present medications. - Await pathology results. - Repeat colonoscopy for surveillance based on pathology results. Klaudia Cantrell DO GI~PROCEDURE ORDERABLES Final Re sult from Last 3 Months or Most Recently Relevant to Health Maintenance Insurance [employer] Care Teams Hand Stoner Relationship Specialty Start Date End Date Andre Rush MD [address] [place] [phone] PCP - General Internal Medicine 11/08/24
--- OUTSIDE RECORDS SUMMARY | 2025-09-08 08:51 | XMS_ITS | Encounter Summary ---
Author Organization [facility] Address [address] [place] [address] Care Team Providers Care Business Office Director Name Role Phone Andre Rush MD Primary Care Pr ovider Encounter Details Date Type Department Care Team (Late st Contact Info) Description 05/02/2025 Lab Requisition [facility] - Main Lab [address] [facility] [place] [phone] Clara Miramontes, [place] [address] [place] [address] Malignant neoplasm of prostate ([facility]/HCC V24, CMS/HCC V28) Social History Tobacco Use Types Packs/Day Years Used Date Smoking Tobacco: Never Smokeless Tobacco: Never Alcohol Use Standard Drinks/Week Comments Yes 4 (1 standard drink = 0.6 oz pur e alcohol) Housing Instability Answer Date Recorde d Are you worried that in the next 2 months you may not have stable housing? No 11/02/2024 Food Access & Nutrition Answer Date Rec orded Do you have access to a vari ety of food including fruits and vegetables? Yes 11/02/2024 Health Literacy Answer Date Recorded How often do you need to hav e someone help you when you read instructions, pamphlets, or other written material from your doctor or pharmacy? Never 11/02/2024 Caregiver: How often do you need to have someone help you when you read instructions, pamphlets, or other written material from your doctor or pharmacy? Not on file 11/02/2024 Financial Risk Answer Date Recorded How hard is it for you to pa y for the very basics like food, housing, medical care, and air conditioning / heating? Not very hard 11/02/2024 Transportation Answer Date Recorded Has the lack of transportati on kept you from meetings, work, or from getting things needed for daily living? No Has the lack of transportati on kept you from medical appointments or from getting medications? No 11/02/2024 Social Isolation Answer Date Recorded How often do you feel lonely or isolated from th ose around you? Rarely 11/02/2024 Food Risk Answer Date Recorded Within the past 12 months we worried whether our food would run out before we got money to buy more. Never true 11/02/2024 Within the past 12 months th e food we bought just didn't last and we didn't have money to get more. Never true 11/02/2024 Dependent Care Answer Date Recorded Do you need help finding or paying for care for your loved ones. For example, child care attendant or elderly care for an older adult? No 11/02/2024 Education Answer Date Recorded Do you think completing more education or training, like finishing a GED, going to college, or learning a trade, would be helpful for you? No 11/02/2024 Employment and Income Answer Date Recor ded During the last four weeks, have you been actively looking for work? No 11/02/2024 Living Situation Answer Date Recorded What is your living situation? Unrecognized valu e 11/02/2024 Interpersonal Safety Answer Date Record ed Physical [...] 09/09/2025 10:00 AM EDT Office Visit Neurosurgery [facility] [address] [facility] [address] [place] [phone] Lesli Barreto MD [address] [place] [address] 09/13/2025 9:30 AM EDT Office Visit Adult Medicine [facility] [address] [place], [place] [phone] Cecilia Staton PA [address] [place] [address] 11/14/2025 9:00 AM EST Appointment [facility] Endoscopy [address] [place] [phone] Jeremias Cantrell, DO [address] [id number] documented as of this encounter Procedures Procedure Name Priority Date/Time Associated Diagnosis Comments PROSTATE SPECIFIC ANTIGEN DIAGNOSTIC Routine 05/02/2025 9:15 AM EDT Malignant neoplasm of prostate ([facility]/HCC V24, [facility] V28) documented in this encounter Results * Prostate specific antigen diagnostic (05/02/2025 9:15 AM EDT) PSA <0.06 0.00 - 4.00 ng/mL LAB CHEMISTRY METHOD 05/02/2025 12:[address] [facility] Blood Venous blood specimen / Unknown 05/02/2025 9:15 AM EDT 05/02/2025 11:[address] [facility] - 05/02/2025 12:59 PM EDT The Siemens Advia Centaur Chemiluminescent Immunoassay is used. Results obtained with different assay methods or kits cannot be used interchangeably. Results cannot be interpreted as absolute evidence of the presence or absence of malignant disease. us Clara TOBAR LAB BLOOD ORDERABLES Final Resul t [facility] [address] [place] [address], documented in this encounter Visit Diagnoses Diagnosis Malignant neoplasm of prostate (CMS/HCC V24, CMS/HCC V28) Malignant neoplasm of prostate documented in this encounter Additional Health Concerns Assessment Noted Time PHQ-9 Depression Total Score: 0 11/02/20 8:36 AM EST documented as of this encounter Care Teams Business Office Director Relationship Specialty Start Date End Date Andre Rush MD [address] [place] [phone] PCP - General Internal Medicine 11/08/24 documented as of this encounter
== END 2025-09-08 09:12 | disposition home or self-care (01) ==
LOC: HO.HSMS 08:28
PROVIDERS: PCP Family Medicine; Visit Provider Psychiatry & Neurology Neurology
DX: G20.A1 Parkinson's disease without dyskinesia, without mention of fluctuations (principal); G47.10 Hypersomnia, unspecified; R06.83 Snoring
CPT/HCPCS: 99204